=== PATIENT | male | born 1960 | race Caucasian/White ===

== ENCOUNTER 2016-09-18 16:45 | Observation (INO) | payer OTHER ==
[~2016-09-18] VITALS: Ht 182.9 cm; Wt 99.8 kg
[2016-09-18] MEDS ORDERED: GABA300C16 PO (19:43)
[2016-09-18] MEDS ORDERED: METO-448 PO (19:44)
[2016-09-18] MEDS ORDERED: PRAV20TA63 PO (19:44)
[2016-09-18] MEDS ORDERED: ASPI-664 PO (19:44)
[2016-09-18] MEDS ORDERED: ASPIRIN 81 MG TAB PO STA (19:46)
[2016-09-18 20:01] LABS: ADD SCAN DIFF NO
[2016-09-18 20:08] LABS: BASOPHIL # 0.1 10^3/ul (0.0-0.1); BASOPHILS % 1.2 % (0.0-2.0); EOSINOPHILS # 0.3 10^3/ul (0.0-0.5); EOSINOPHILS % 3.4 % (0.0-7.0); HEMATOCRIT 44.9 % (42.0-52.0); HEMOGLOBIN 15.6 g/dl (14.0-18.0); LYMPHOCYTES # 2.8 10^3/ul (0.8-2.9); LYMPHOCYTES % 30.7 % (15.0-51.0); MEAN CORPUSCULAR HEMOGLOBIN 30.6 pg (29.0-33.0); MEAN CORPUSCULAR HGB CONC 34.7 g/dl (32.0-37.0); MEAN PLATELET VOLUME 9.9 fl (7.4-10.4); MONOCYTE # 0.6 10^3/ul (0.3-0.9); MONOCYTES % 6.7 % (0.0-11.0); NEUTROPHIL # 5.3 10^3/ul (1.6-7.5); NEUTROPHILS % 57.7 % (39.0-77.0); PLATELET COUNT 290 10^3/UL (140-415); RED CELL DISTRIBUTION WIDTH 12.4 % (11.5-14.5); WHITE BLOOD COUNT 9.1 10^3/ul (4.8-10.8)
[2016-09-18 20:12] LABS: INR 0.95; PROTIME 12.7 Sec (12.2-14.2)
[2016-09-18 20:13] LABS: ALBUMIN 4.2 g/dl (3.3-4.9); CHLORIDE 106 mmol/L (97-110); SODIUM 142 mmol/L (135-144)
[2016-09-18 20:14] LABS: POTASSIUM 3.9 mmol/L (3.5-5.1)
[2016-09-18 20:16] LABS: ALANINE AMINOTRANSFERASE 25 IU/L (13-69); ALKALINE PHOSPHATASE 87 IU/L (42-121); ANION GAP 14 (8-16); ASPARTATE AMINO TRANSFERASE 18 IU/L (15-46); BILIRUBIN,INDIRECT 0.3 mg/dl (0-1.1); BILIRUBIN,TOTAL 0.3 mg/dl (0.2-1.3); BLOOD UREA NITROGEN 17 mg/dl (7-20); CALCIUM 9.5 mg/dl (8.4-10.2); CARBON DIOXIDE 26 mmol/L (21-31); CREATINE KINASE 120 IU/L (23-200); CREATININE 0.75 mg/dl (0.61-1.24); GLUCOSE 142 mg/dl (70-220)
[2016-09-18 20:30] LABS: CK-MB 1.05 ng/ml (0.0-2.4); TROPONIN-I < 0.012 ng/ml (0.00-0.12)
--- NOTE | 2016-09-18 20:37 | RADRPT ---
PROCEDURE: XR Chest. CLINICAL INDICATION: Chest pain. TECHNIQUE: Portable AP upright view of the chest was obtained. COMPARISON: None. FINDINGS: The cardiomediastinal silhouette is within normal limits. The lungs are clear but slightly hyperinf lated, the diaphragm flattened. There is no evidence for pleural effusion, pneumothorax or pulmonar y vascular congestion. The osseous structures are intact with no evidence for acute abnormality. RPTAT:HJJR IMPRESSION: No evidence for acute intrathoracic pathology, mild hyperinflation of the lungs cannot exclude chron ic obstructive pulmonary disease in the proper clinical setting. Physician Charla Date Time Electronically viewed and signed by Physician Charla on 09/18/2016 20:36 JR/
--- NOTE | 2016-09-18 21:54 | ERD ---
ER Documentation Chief Complaint Date/Time DATE: 09/18/16 TIME: 21:45 Chief Complaint CHEST PAIN FOR 2 MONTHS. NEEDS ANGIOGRAM. PAIN IS NOW GETTING WORSE HPI 55-year-old male with a history of hypertension, polysubstance abuse, and coronary artery disease presenting with worsening chest pain. He states that for the past 2 months he has had chest pain with exertion. He has had associated diaphoresis and shortness of breath. The pain has been getting worse recently and lasting longer. His pain does improve with rest. 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 He was told he had coronary artery disease and will need an urgent cath. Since then his pain has been worsening so he came to the ED for evaluation today. ROS All systems reviewed and are negative except as per history of present illness. Medications Home Meds Reported Medications Aspirin (Low Dose Aspirin) 81 Mg Tablet., 81 MG PO DAILY, #30 TAB 09/18/16 Metoprolol Tartrate* (Lopressor*) 25 Mg Tab, 25 MG PO BID, #60 TAB 09/18/16 Pravastatin Sodium* (Pravastatin Sodium*) 20 Mg Tablet, 20 MG PO HS, TAB 09/18/16 Gabapentin* (Gabapentin*) 300 Mg Capsule, 300 MG PO TID, #90 CAP 09/18/16 Allergies Allergies: Coded Allergies: No Known Allergy (Unverified , 09/18/16) PMhx/Soc Hx Cardiac Disorders: Yes (HTN, HLD) Hx Miscellaneous Medical Probl: Yes (PRE DM.) Hx Alcohol Use: Yes (QUIT 06/2016) Hx Substance Use: Yes (COCAINE AND WEED, QUIT 06/2016.) Hx Tobacco Use: Yes Smoking Status: Former smoker FmHx Family History: coronary disease (Father, brother), No diabetes Physical Exam Vitals Vital Signs Date Time Temp Pulse Resp B/P Pulse Ox O2 Delivery O2 Flow Rate FiO2 09/18/16 20:42 75 16 125/91 98 Room Air 09/18/16 19:31 81 20 154/94 100 Room Air 09/18/16 16:52 98.8 93 21 125/91 97 Physical Exam Const: No apparent distress, well-appearing, nontoxic Head: Atraumatic Eyes: Normal Conjunctiva ENT: Normal External Ears, Nose and Mouth. Neck: Full range of motion..~ No meningismus. Resp: Clear to auscultation bilaterally Cardio: Regular rate and rhythm, no murmurs Abd: Soft, non tender, non distended. Normal bowel sounds Skin: No petechiae or rashes Back: No midline or flank tenderness Ext: No cyanosis, or edema Neur: Awake and alert Psych: Normal Mood and Affect Result Diagram: 09/18/16195409/18/161954 Results 24 hrs Laboratory Tests Test 09/18/16 19:55 White Blood Count 9.110^3/ul Red Blood Count 5.1010^6/ul Hemoglobin 15.6g/dl Hematocrit 44.9% Mean Corpuscular Volume 88.0fl Mean Corpuscular Hemoglobin 30.6pg Mean Corpuscular Hemoglobin Concent 34.7g/dl Red Cell Distribution Width 12.4% Platelet Count 22606^3/UL Mean Platelet Volume 9.9fl Neutrophils % 57.7% Lymphocytes % 30.7% Monocytes % 6.7% Eosinophils % 3.4% Basophils % 1.2% Nucleated Red Blood Cells % 0.0/100WBC Neutrophils # 5.310^3/ul Lymphocytes # 2.810^3/ul Monocytes # 0.610^3/ul Eosinophils # 0.310^3/ul Basophils # 0.110^3/ul Nucleated Red Blood Cells # 0.010^3/ul Prothrombin Time 12.7Sec Prothrombin Time Ratio 1.0 INR International Normalized Ratio 0.95 Activated Partial Thromboplast Time 32.0Sec Sodium Level 142mmol/L Potassium Level 3.9mmol/L Chloride Level 106mmol/L Carbon Dioxide Level 26mmol/L Anion Gap 14 Blood Urea Nitrogen 17mg/dl Creatinine 0.75mg/dl Glucose Level 142mg/dl Calcium Level 9.5mg/dl Total Bilirubin 0.3mg/dl Direct Bilirubin 0.00mg/dl Indirect Bilirubin 0.3mg/dl Aspartate Amino Transf (AST/SGOT) 18IU/L Alanine Aminotransferase (ALT/SGPT) 25IU/L Alkaline Phosphatase 87IU/L Creatine Kinase 120IU/L Creatine Kinase Index 0.9 Creatinine Kinase MB (Mass) 1.05ng/ml Troponin I < 0.012ng/ml Total Protein 7.0g/dl Albumin 4.2g/dl Globulin 2.80g/dl Albumin/Globulin Ratio 1.50 Current Medications Medications (Trade) Dose Ordered Sig/[place] Route PRN Reason Start Time Stop Time Status Last Admin Dose Admin Aspirin (Aspirin) 162 mg ONCE STAT PO 09/18/16 19:46 09/18/16 19:47 DC 09/18/16 19:51 Procedures/MDM EMERGENT LABS AND DIAGNOSTIC STUDIES: Lab Results above were reviewed and interpreted by me. Labs are unremarkable, troponin negative 12-lead EKG was interpreted by Amberly Krishnamurthy MD: Normal Sinus Rhythm with ventricular rate of 98 beats per minute Normal axis Normal intervals No acute ST or T wave changes suggestive of acute ischemia or STEMI. Radiology Results as interpreted by Radiology below were reviewed by Lewis Krishnamurthy MD: Chest x-ray: IMPRESSION: No evidence for acute intrathoracic pathology, mild hyperinflation of the lungs cannot exclude chronic obstructive pulmonary disease in the proper clinical setting. Physician Charla Date Time Electronically viewed and signed by Physician Charla on 09/18/2016 20:36 Initial Nursing notes reviewed. Previous Medical Records requested via the Electronic Health Record. EMERGENCY DEPARTMENT COURSE / MEDICAL DECISION MAKING: Patients symptoms are concerning for a cardiac etiology. Other etiologies considered were PE, aortic dissection, pneumonia, pneumothorax, esophageal rupture. ASA was given. EKG showed no acute ischemia. Initial troponin negative. CXR grossly unremarkable. However, patient had high risk of adverse events. I suspect unstable angina. Patient is not safe for discharge and will need inpatient monitoring and further evaluation. Further workup will be deferred to the inpatient team. Accepting Care Team: Current data and ongoing care discussed. Time: Time of admission Primary Provider: Geraldine Consulting: none Outstanding Data: none Departure Diagnosis: Primary Impression: Unstable angina Condition: Serious JESSICA KRISHNAMURTHY MD Sep 18, 2016 21:54
[2016-09-18] MEDS ORDERED: ACETAMINOPHEN 325 MG TAB PO PRN (22:00)
[2016-09-18] MEDS ORDERED: ONDANSETRON 4 MG INJ IV PRN (22:00)
[2016-09-19] VITALS (13 sets, daily range): BP systolic 118–145; BP diastolic 74–91; PULSE 63–82; RESP 18–22; Ht 182.9 cm; Wt 99.8 kg
[2016-09-19] MEDS ORDERED: NITROGLYCERIN (SL) 0.4 MG TAB SL PRN (00:30)
[2016-09-19] MEDS ORDERED: morphine 4 MG/ML VIAL IV PRN (00:30)
[2016-09-19] MEDS ORDERED: ACETAMINOPHEN 325 MG TAB PO PRN (00:30)
[2016-09-19] MEDS ORDERED: ONDANSETRON 4 MG INJ IV PRN (01:00)
[2016-09-19 01:15] LABS: CREATINE KINASE 92 IU/L (23-200)
[2016-09-19 01:26] LABS: CK-MB 0.82 ng/ml (0.0-2.4)
[2016-09-19 01:30] LABS: TROPONIN-I < 0.012 ng/ml (0.00-0.12)
--- NOTE | 2016-09-19 07:40 | HP ---
DATE OF ADMISSION: 09/18/2016 TIME SEEN: 2300. CHIEF COMPLAINT: Chest pain. HISTORY OF PRESENT ILLNESS: The patient is a 55-year-old male with a history of hypertension, coron jose luis artery disease, dyslipidemia, and polysubstance abuse, who presented to the emergency department with a chief complaint of chest pain. He stated his chest pain has been progressively getting wors e over the past 2 months and is worse with exertion and associated with shortness of breath. He den ied nausea or vomiting, but reported diaphoresis associated with this chest pain. The pain is worse with exertion and better with rest. His touch up painter hand is Dr. Saenz and he said he was seen in the clinic a week ago and had some cardiac tests, including a stress test. He stated he was told that h e will need cardiac catheterization. When he presented to the ER his vitals were stable. CBC and CMP are unremarkable. Chest x-ray, mil d hyperinflation of the lung. First troponin is negative. EKG with no ST or T-wave abnormalities. REVIEW OF SYSTEMS: A 12-point review of systems was performed and negative except as mentioned in th e HPI. PAST MEDICAL HISTORY: As per HPI. PAST SURGICAL HISTORY: As per HPI. SOCIAL HISTORY: He stopped smoking a long time ago. He has a history of illicit drug use, but he q uit in June of this year. Drinks alcohol occasionally. ALLERGIES: NO KNOWN DRUG ALLERGIES. HOME MEDICATIONS: 1. Lopressor. 2. Pravastatin. 3. Aspirin. 4. Gabapentin. PHYSICAL EXAMINATION: VITAL SIGNS: Stable. GENERAL: In no acute distress, answering questions appropriately, able to speak in full sentences. HEENT: No obvious head deformity. Pupils are reactive to light. Extraocular muscles are intact. CARDIOVASCULAR: Regular rate and rhythm. No extra sounds. ABDOMEN: Soft, nontender, nondistended. Positive bowel sounds. EXTREMITIES: No edema. NEUROLOGIC: There are no focal deficits. LABORATORY: CBC and CMP are unremarkable. First troponin is negative. IMAGING: Chest x-ray with mild hyperinflation, otherwise no acute findings. EKG: Sinus rhythm, with a rate of [address] beats [address] minute. no ST or T wave abnormalities. IMPRESSION: 1. Chest pain. Need to rule out acute coronary syndrome. 2. History of coronary artery disease and a self-reported history of a recent positive stress test. 3. History of hypertension. Blood pressure within goal. 4. History of dyslipidemia. 5. History of prediabetes. PLAN: Continue telemetry monitoring. He will be continued with his beta reynold, statin and aspirin . He will be placed on oxygen and will be provided as needed nitroglycerin and morphine. Will tren d his troponin. Will notify his touch up painter hand, Dr. Saenz, about the patient's admission. We will c heck an A1c, fasting lipid and TSH in the morning. Dictated By: CINDY MENDOZA MD DA/CHRIS Conf#: [id number] DID#: [id number]
[2016-09-19 08:01] LABS: ADD SCAN DIFF NO
[2016-09-19 08:12] LABS: BASOPHIL # 0.1 10^3/ul (0.0-0.1); BASOPHILS % 1.1 % (0.0-2.0); EOSINOPHILS # 0.3 10^3/ul (0.0-0.5); EOSINOPHILS % 3.3 % (0.0-7.0); HEMATOCRIT 43.4 % (42.0-52.0); HEMOGLOBIN 14.6 g/dl (14.0-18.0); LYMPHOCYTES # 1.8 10^3/ul (0.8-2.9); LYMPHOCYTES % 23.1 % (15.0-51.0); MEAN CORPUSCULAR HGB CONC 33.6 g/dl (32.0-37.0); MEAN CORPUSCULAR VOLUME 89.1 fl (82.0-101.0); MEAN PLATELET VOLUME 9.9 fl (7.4-10.4); MONOCYTE # 0.6 10^3/ul (0.3-0.9); MONOCYTES % 7.7 % (0.0-11.0); NEUTROPHIL # 5.1 10^3/ul (1.6-7.5); NEUTROPHILS % 64.4 % (39.0-77.0); PLATELET COUNT 270 10^3/UL (140-415); RED BLOOD COUNT 4.87 10^6/ul (4.70-6.10); RED CELL DISTRIBUTION WIDTH 12.9 % (11.5-14.5); WHITE BLOOD COUNT 7.9 10^3/ul (4.8-10.8)
[2016-09-19 08:29] LABS: ALBUMIN 3.6 g/dl (3.3-4.9)
[2016-09-19 08:30] LABS: CREATINE KINASE 80 IU/L (23-200); POTASSIUM 3.8 mmol/L (3.5-5.1)
[2016-09-19 08:32] LABS: ALBUMIN/GLOBULIN RATIO 1.44; BILIRUBIN,INDIRECT 0.4 mg/dl (0-1.1); BILIRUBIN,TOTAL 0.4 mg/dl (0.2-1.3); CREATININE 0.75 mg/dl (0.61-1.24); TOTAL PROTEIN 6.1 g/dl (6.1-8.1)
[2016-09-19 08:33] LABS: PHOSPHORUS 4.4 mg/dl (2.5-4.9)
[2016-09-19 08:34] LABS: CHOL/HDL RATIO 3.9 RATIO; MAGNESIUM 2.2 mg/dl (1.7-2.5)
[2016-09-19 08:39] LABS: TROPONIN-I < 0.012 ng/ml (0.00-0.12)
[2016-09-19 08:53] LABS: CK-MB 0.75 ng/ml (0.0-2.4)
[2016-09-19] MEDS: GABAPENTIN 300 MG CAP PO SCH ×3 (09:32→20:11)
[2016-09-19] MEDS: ASPIRIN (EC) 81 MG TAB PO SCH (09:32)
[2016-09-19] MEDS: METOPROLOL 25 MG TAB PO SCH ×2 (09:32→20:12)
[2016-09-19] MEDS: HEPARIN 5,000 UNIT/0.5 ML VIAL SC SCH ×2 (09:42→20:12)
[2016-09-19 14:08] LABS: CREATINE KINASE 80 IU/L (23-200)
[2016-09-19 14:18] LABS: CK-MB 0.56 ng/ml (0.0-2.4)
[2016-09-19 14:22] LABS: TROPONIN-I < 0.012 ng/ml (0.00-0.12)
--- NOTE | 2016-09-19 14:29 | CONS ---
DATE OF ADMISSION: 09/18/2016 DATE OF CONSULTATION: 09/19/2016 CARDIOLOGY CONSULTATION REASON FOR CONSULTATION: Chest pain. Assess for acute coronary syndrome. REQUESTING PHYSICIAN: Dr. Mendoza from the hospitalist service. HISTORY OF PRESENT ILLNESS: Mr. Baumann is a 55-year-old male with a history of hypertension, coronar y artery disease, dyslipidemia, polysubstance abuse, prior tobacco, quit times approximately 2 month s, who presents with complaints of substernal chest pain. The patient describes the chest pain as a pressure-like sensation, worse with exertional activities. 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 Saenz, and reportedly has an abnormal stress test. The patient s tates he was to be scheduled for an outpatient catheterization, but continued to have chest pain and subsequently presented to the emergency department. Upon arrival in the emergency department tempe rature was 98.8, blood pressure 125/91, pulse 93, respiratory rate 21, saturating 97%. The patient' s labs revealed a white count of 9.1, hemoglobin 15.6, a platelet count of 290. Sodium 142, potassi um 3.9, creatinine of 0.75, BUN 17. Troponin negative. LDL 83, HDL 34. TSH 2.0, INR 0.95. The pa garrett underwent a chest x-ray, revealing no evidence of acute cardiopulmonary abnormalities, mild hy perinflation of the lungs. Could not exclude chronic obstructive pulmonary disease. The patient's electrocardiogram revealed normal sinus rhythm at a rate of 98, normal axis, with borderline inferio r Q's. The patient subsequently has been admitted to the floor. Since admit to floor he has had in termittent substernal chest pain. PAST MEDICAL HISTORY: As above in the HPI. MEDICATIONS CURRENTLY IN HOSPITAL: 1. Lipitor 10 mg at bedtime. 2. Aspirin 81 mg daily. 3. Metoprolol 25 b.i.d. 4. Heparin 5000 subcutaneous b.i.d. 5. Sublingual nitroglycerin p.r.n. 6. Tylenol p.r.n. 7. Morphine p.r.n. ALLERGIES: NO KNOWN DRUG ALLERGIES. SOCIAL HISTORY: Prior tobacco, quit x2 months. Social ETOH. FAMILY HISTORY: No history of sudden cardiac or early CAD. REVIEW OF SYSTEMS: As above in the HPI. CONSTITUTIONAL: No fevers or chills. PULMONARY: No shortness of breath. CARDIOVASCULAR: Positive chest pain. GASTROINTESTINAL: No vomiting. GENITOURINARY: No hematuria. MUSCULOSKELETAL: Degenerative joint disease. PSYCHIATRIC: The patient denies depression. NEUROLOGIC: No documented history of CVA. PHYSICAL EXAMINATION: VITAL SIGNS: Temperature of 97.5, blood pressure 118/74, pulse 70, respiratory rate 18, saturating 95%. GENERAL: The patient is alert, awake, complaining of intermittent chest pain. NECK: JVP of approximately 8-9 cm of water. CHEST: Fair air movement throughout. HEART: Regular rate and rhythm. Normal S1, S2. A I/ systolic murmur, nondisplaced PMI. ABDOMEN: Positive bowel sounds, soft. EXTREMITIES: No edema, 1+ pulses bilaterally, posterior tibial. LABORATORY: As above in the HPI, with most recent from today, troponins negative times a total of 3 . Sodium 141, potassium , creatinine 0.7, BUN 16, hemoglobin A1c 5.6. LDL 83, HDL 34. White blood cell count 7.9, hemoglobin 14.6, platelet count of 270. IMAGING STUDIES: As above in the HPI. No further imaging studies for my review at this time. ECG: As above in the HPI. No further electrocardiograms for my review at this time. IMPRESSION: 1. Chest pain. Assess for acute coronary syndrome. 2. Abnormal electrocardiogram with borderline inferior Q's. Assess for acute coronary syndrome. 3. History of abnormal cardiac stress test very recently. 4. Hypertension. 5. Prior tobacco intake. 6. Dyslipidemia. RECOMMENDATIONS: 1. At this time would maintain the patient on telemetry monitoring to follow rhythm and rate contro l closely. 2. Would check serial EKGs to assess for any significant ongoing changes. EKG in the morning, EKG for any complaints of chest pain or changes in rhythm. 3. Will initiate the patient on low dose oral nitrates and follow symptomatology and continue the p atient's beta reynold at this time. 4. Will discontinue the patient's aspirin for prophylaxis against cardiovascular events and will co ntinue the patient's current statin therapy at this time. 5. Will review the patient's cardiac stress test in the office today and if the patient is found to have an abnormal stress test, will attempt to the patient's cardiac catheterization and sched ule it for tomorrow if possible. Thank you for allowing me to take part in the care of this patient. I will continue to follow him a long very closely with you. Further recommendations will be made as the patient progresses through his inpatient hospital clinical course. Dictated By: MERE CURTIS MD JH/NTS Conf#: [id number] DID#: [id number] CC: CINDY MENDOZA MD;*EndCC*
--- NOTE | 2016-09-19 15:22 | PN ---
Date/Time of Note Date/Time of Note DATE: 09/19/16 TIME: 15:14 Assessment/Plan VTE Prophylaxis VTE Prophylaxis Intervention: heparin Lines/Catheters IV Catheter Type (from Nrs): Saline Lock Urinary Cath still in place: No Assessment/Plan Assessment/Plan 1. Chest pain. with positive stress thallium test in Dr. Saenz's office, cardiology to schedule for LHC 2. Hypertension. stable 3. Dyslipidemia. on lipitor 4. DVT prophylaxis: heparin Subjective 24 Hr Interval Summary Free Text/Dictation chest pain on exertion Exam/Review of Systems Vital Signs Vitals Vital Signs Date Time Temp Pulse Resp B/P Pulse Ox O2 Delivery O2 Flow Rate FiO2 09/19/16 12:27 68 09/19/16 11:39 97.5 18 118/74 95 09/19/16 00:20 Room Air 09/18/16 22:53 3.0 Intake and Output 09/18/16 09/18/16 09/19/16 15:00 23:00 07:00 Intake Total 400 ml Balance 400 ml Exam Constitutional: alert, oriented, well developed Psych: nl mood/affect, no complaints Head: atraumatic, normocephalic Eyes: EOMI, PERRL, nl conjunctiva, nl lids, nl sclera ENMT: nl external ears & nose, nl lips & teeth, nl nasal mucosa & septum Neck: non-tender, supple Respiratory: clear to auscultation, normal air movement, No congested cough, No crackles/rales, No diminished breath sounds, No intercostal retraction, No labored breathing, No other, No respirations, No tactile fremitus, No wheezing Cardiovascular: nl pulses, regular rate and rhythm, No S3, No S4, No bruits, No diastolic murmur, No edema, No gallop, No irregular rhythm, No jugular venous distention (JVD), No murmurs/extra sounds, No other, No rub, No systolic murmur Gastrointestinal: nl liver, spleen, non-tender, soft, No ascites, No bowel sounds, No distended, No firm, No hepatomegaly, No mass , No other, No rebound or guarding, No splenomegaly, No surgical scars, No tender Musculoskeletal: nl extremities to inspection Extremities: normal pulses, No calf tenderness, No clubbing, No cyanosis, No edema, No other, No palpable cord, No pitting pedal edema, No tenderness Neurological: FARM DEMONSTRATOR II-XII intact, nl mental status, nl speech, nl strength Skin: nl turgor Lymph: nl lymph nodes Results Result Diagram: 09/19/16 0640 09/19/16 0640 Results 24 hrs Laboratory Tests Test 09/18/16 19:55 09/19/16 00:57 09/19/16 06:40 09/19/16 13:30 White Blood Count 9.1 7.9 Red Blood Count 5.10 4.87 Hemoglobin 15.6 14.6 Hematocrit 44.9 43.4 Mean Corpuscular Volume 88.0 89.1 Mean Corpuscular Hemoglobin 30.6 30.0 Mean Corpuscular Hemoglobin Concent 34.7 33.6 Red Cell Distribution Width 12.4 12.9 Platelet Count 290 270 Mean Platelet Volume 9.9 9.9 Neutrophils % 57.7 64.4 Lymphocytes % 30.7 23.1 Monocytes % 6.7 7.7 Eosinophils % 3.4 3.3 Basophils % 1.2 1.1 Nucleated Red Blood Cells % 0.0 0.0 Neutrophils # 5.3 5.1 Lymphocytes # 2.8 1.8 Monocytes # 0.6 0.6 Eosinophils # 0.3 0.3 Basophils # 0.1 0.1 Nucleated Red Blood Cells # 0.0 0.0 Prothrombin Time 12.7 Prothrombin Time Ratio 1.0 INR International Normalized Ratio 0.95 Activated Partial Thromboplast Time 32.0 Sodium Level 142 141 Potassium Level 3.9 3.8 Chloride Level 106 108 Carbon Dioxide Level 26 25 Anion Gap 14 12 Blood Urea Nitrogen 17 16 Creatinine 0.75 0.75 Glucose Level 142 103 Calcium Level 9.5 9.0 Total Bilirubin 0.3 0.4 Direct Bilirubin 0.00 0.00 Indirect Bilirubin 0.3 0.4 Aspartate Amino Transf (AST/SGOT) 18 19 Alanine Aminotransferase (ALT/SGPT) 25 26 Alkaline Phosphatase 87 77 Creatine Kinase 120 92 80 80 Creatine Kinase Index 0.9 0.9 0.9 0.7 Creatinine Kinase MB (Mass) 1.05 0.82 0.75 0.56 Troponin I < 0.012 < 0.012 < 0.012 < 0.012 Total Protein 7.0 6.1 Albumin 4.2 3.6 Globulin 2.80 2.50 Albumin/Globulin Ratio 1.50 1.44 Hemoglobin A1c 5.6 Phosphorus Level 4.4 Magnesium Level 2.2 Triglycerides Level 91 Cholesterol Level 135 LDL Cholesterol, Calculated 83 HDL Cholesterol 34 Cholesterol/HDL Ratio 3.9 Thyroid Stimulating Hormone (TSH) 2.000 Medications Medications Current Medications Aspirin (Halfprin) 81 mg DAILY PO Last administered on 09/19/16 09:32; Admin Dose 81 MG; Start 09/19/16 at 09:00 Gabapentin (Neurontin) 300 mg TID PO Last administered on 09/19/16 13:40; Admin Dose 300 MG; Start 09/19/16 at 09:00 Metoprolol Tartrate (Lopressor) 25 mg BID PO Last administered on 09/19/16 09: 32; Admin Dose 25 MG; Start 09/19/16 at 09:00 Acetaminophen (Tylenol Tab) 650 mg Q6H PRN PO PAIN AND OR ELEVATED TEMP; Start 09/19/16 at 00:30 Morphine Sulfate (morphine) 3 mg Q3H PRN IV PAIN; Start 09/19/16 at 00:30 Heparin Sodium (Porcine) (Heparin (5000 Units/0.5 ml)) 5,000 unit BID SC Last administered on 09/19/16 09:42; Admin Dose 5,000 UNIT; Start 09/19/16 at 09:00 Nitroglycerin (Nitroglycerin (Sl Tab) 0.4 Mg) 1 tab Q5M PRN SL ANGINA; Start at 00:30 Ondansetron HCl (Zofran Inj) 4 mg Q4H PRN IV NAUSEA AND/OR VOMITING; Start at 01:00 Atorvastatin Calcium (Lipitor) 10 mg DAILY@21 PO ; Start 09/19/16 at 21:00 Diazepam (Valium) 5 mg OC ONCE PO ; Start 09/20/16 at 08:00; Stop 09/20/16 at 08:01 Diphenhydramine HCl (Benadryl) 50 mg OC ONCE PO ; Start 09/20/16 at 08:00; Stop 09/20/16 at 08:01 Isosorbide Dinitrate (Isordil) 10 mg TID PO ; Start 09/19/16 at 21:00 CHEYENNE EDGE MD Sep 19, 2016 15:22
[2016-09-19] MEDS: ISOSORBIDE DINITRATE 10 MG TAB PO SCH (20:12)
[2016-09-19] MEDS ORDERED: ATORVASTATIN 10 MG TAB PO SCH (21:00)
[2016-09-20] VITALS (8 sets, daily range): BP systolic 104–111; BP diastolic 57–65; PULSE 65–84; RESP 16–18
[2016-09-20] MEDS ORDERED: DIAZEPAM 5 MG TAB PO ONE (08:00)
[2016-09-20] MEDS ORDERED: DIPHENHYDRAMINE 50 MG CAP PO ONE (08:00)
[2016-09-20] MEDS: ASPIRIN (EC) 81 MG TAB PO SCH (08:07)
[2016-09-20] MEDS: GABAPENTIN 300 MG CAP PO SCH ×2 (08:07→15:01)
[2016-09-20] MEDS: METOPROLOL 25 MG TAB PO SCH (08:07)
[2016-09-20] MEDS: ISOSORBIDE DINITRATE 10 MG TAB PO SCH ×2 (08:08→12:45)
[2016-09-20] MEDS: HEPARIN 5,000 UNIT/0.5 ML VIAL SC SCH (08:09)
--- NOTE | 2016-09-20 14:01 | RADRPT ---
Vent Rate: 69 bpm RR Interval: 0 msec NV Interval: 168 msec QRS Duration: 78 msec QT Interval: 368 msec QTC Interval: 394 msec P-R-T [place]: 68 - 61 - 66 degrees Normal sinus rhythm Normal ECG Electronically Signed By: Mak Simmons [id number]
--- NOTE | 2016-09-20 14:02 | RADRPT ---
Vent Rate: 72 bpm RR Interval: 0 msec MA Interval: 164 msec QRS Duration: 86 msec QT Interval: 372 msec QTC Interval: 407 msec P-R-T [place]: 60 - 65 - 69 degrees Normal sinus rhythm Normal ECG Electronically Signed By: Mak Simmons [id number]
--- NOTE | 2016-09-20 14:13 | DS ---
Date/Time of Note Date/Time of Note DATE: 09/20/16 TIME: 14:04 Discharge Summary Admission/Discharge Info Admit Date/Time Sep 18, 2016 at 21:45 Discharge Date/Time Final Diagnosis 1. Chest pain. with positive stress thallium test, needs coronary angiography, patient signed AMA 2. Hypertension. stable 3. Dyslipidemia. on lipitor Patient Condition: Fair Hospital Course The patient is a 55-year-old male with a history of hypertension, coronary artery disease, dyslipidemia, and polysubstance abuse, who presented to the emergency department with a chief complaint of chest pain. He stated his chest pain has been progressively getting worse over the past 2 months and is worse with exertion and associated with shortness of breath. He denied nausea or vomiting, but reported diaphoresis associated with this chest pain. The pain is worse with exertion and better with rest. 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 He stated he was told that he will need cardiac catheterization. Patient needs coronary angiography angiography, but patient is signing AMA for insurance issue. Home Meds Reported Medications Aspirin (Low Dose Aspirin) 81 Mg Tablet.dr, 81 MG PO DAILY, #30 TAB 09/18/16 Metoprolol Tartrate* (Lopressor*) 25 Mg Tab, 25 MG PO BID, #60 TAB 09/18/16 Pravastatin Sodium* (Pravastatin Sodium*) 20 Mg Tablet, 20 MG PO HS, TAB 09/18/16 Gabapentin* (Gabapentin*) 300 Mg Capsule, 300 MG PO TID, #90 CAP 09/18/16 Follow-up Plan cardiology as soon as possible CHEYENNE EDGE MD Sep 20, 2016 14:12
== END 2016-09-20 15:15 | disposition left against medical advice (07) ==
LOC: E/R 16:45 → MS4 21:45 → INTOOBSV 21:45 → MS4 23:51
PROVIDERS: ADMIT Internal Medicine; ATTEND Internal Medicine
DX: R07.9 Chest pain, unspecified (principal); I10 Essential (primary) hypertension; E78.5 Hyperlipidemia, unspecified; I25.10 Atherosclerotic heart disease of native coronary artery without angina pectoris; R73.03 Prediabetes; Z72.0 Tobacco use; Z79.899 Other long term (current) drug therapy
CPT/HCPCS: 36415; 71010; 80053; 80061; 82550; 82553; 83036; 83735; 84100; 84443; 84484; 85025; 85610; 85730; 93005; 99217; 99285; G0378; J1644; J2270; J2405